=== PATIENT | female | born 1995 | race Caucasian/White ===

== ENCOUNTER 2017-10-21 23:04 | Emergency (ER) | payer OTHER ==
[~2017-10-21] VITALS: Ht 167.6 cm; Wt 82.5 kg
[2017-10-21 23:34] LABS: HEMATOCRIT 39.9 % (36.0-46.0); HEMOGLOBIN 13.8 G/DL (11.9-15.5); MCH 28.6 PG (29.0-34.0); MCHC 34.6 G/DL (30.0-36.0); MCV 82.6 FL (83-99); PLATELET COUNT 306 K/uL (156-360); RBC DIS.WIDTH-CV 11.7 % (11.8-14.6); RBC DIS.WIDTH-SD 35.3 % (39-53); RED BLOOD COUNT 4.83 M/uL (3.80-5.20); WHITE BLOOD COUNT 11.5 K/uL (4.1-10.2)
[2017-10-21 23:48] LABS: CHLORIDE 106 mEq/L (99-109); POTASSIUM 3.8 mEq/L (3.7-5.4); SODIUM 137 mEq/L (136-147)
[2017-10-21 23:50] LABS: GLUCOSE 83 mg/dL (70-99)
[2017-10-21 23:53] LABS: CREATININE 0.7 mg/dL (0.6-1.3)
[2017-10-21 23:54] LABS: UREA NITROGEN (BUN) 8 mg/dL (9-23)
[2017-10-21 23:55] LABS: GFR ESTIMATE (CALCULATED) > 59 mL/min/
[2017-10-21 23:57] LABS: APPEARANCE CLEAR ((CLEAR)); BILIRUBIN NEGATIVE; BLOOD LARGE; COLOR YELLOW ((YELLOW)); GLUCOSE (STRIP) NEGATIVE; KETONES NEGATIVE; LEUKOCYTES MODERATE; NITRITE NEGATIVE; PROTEIN (STRIP) NEGATIVE; SPECIFIC GRAVITY 1.004 (1.000-1.030); UROBILINOGEN 0.2 MG/DL (0.2-1.0)
[2017-10-22] LABS: BACTERIA RARE /HPF; EPITHELIAL CELLS RARE /HPF; MUCUS NONE SEEN /LPF; RED BLOOD CELLS 0-5 /HPF (0-5); UCUL ADDED? YES
[2017-10-22 00:21] LABS: QUANTITATIVE HCG 36433.8 MIU/ML
[2017-10-22] MEDS ORDERED: KEFLEX500 MG PO (02:10)
[2017-10-22 03:01] LABS: SOURCE SWAB
[2017-10-22 03:10] VITALS: BP 127/86
== END 2017-10-22 03:11 | disposition home or self-care (01) ==
LOC: EME 23:04
PROVIDERS: Emergency Medicine
DX: O20.9 Hemorrhage in early pregnancy, unspecified (principal); Z3A.09 9 weeks gestation of pregnancy; O23.41 Unspecified infection of urinary tract in pregnancy, first trimester; Z87.440 Personal history of urinary (tract) infections
CPT/HCPCS: 76801; 80048; 81003; 84702; 85027; 86900; 86901; 87086; 87210; 87491; 87591; 99281; 99284